=== PATIENT | female | born 1985 | race Caucasian/White ===

== ENCOUNTER 2024-03-23 18:42 | Emergency (ER) | payer BC ==
[~2024-03-23] VITALS: Ht 152.4 cm; Wt 59.0 kg
[2024-03-23 19:45] VITALS: BP 113/76; TEMP 98.5; O2SAT 98
[2024-03-23] MEDS ORDERED: IBUP-1953 PO (20:25)
[2024-03-23] MEDS ORDERED: ONDA4TAB5 PO (20:25)
[2024-03-23] MEDS ORDERED: ONDANSETRON 4 MG TAB.RAPDIS ONE (20:26)
[2024-03-23] MEDS ORDERED: IBUPROFEN 600 MG TABLET ONE (20:26)
[2024-03-23] MEDS: IBUPROFEN 600 MG TABLET PO ONE (20:29)
[2024-03-23] MEDS: ONDANSETRON 4 MG TAB.RAPDIS PO ONE (20:29)
== END 2024-03-23 20:35 | disposition home or self-care (01) ==
LOC: ER 18:49
DX: R00.2 Palpitations (principal); R51.9 Headache, unspecified; R11.0 Nausea; F41.9 Anxiety disorder, unspecified; Z86.19 Personal history of other infectious and parasitic diseases
CPT/HCPCS: 99283; 93005; Q0162